=== PATIENT | female | born 1980 | race Caucasian/White ===

== ENCOUNTER 2018-03-11 18:11 | Inpatient (IN) ==
[2018-03-11] MEDS ORDERED: Ondansetron 4 MG/2 ML VIAL IVP ONE (18:36)
[2018-03-11] MEDS ORDERED: *HR* Nalbuphine 10 MG/ML AMPUL IV ONE (18:37)
--- NOTE | 2018-03-11 18:41 | Emergency Department Note ---
Disposition Clinical Impression: Bacteremia, Pyelonephritis Disposition: Admitted As Inpatient Condition: Fair Forms: ED Satisfaction Letter Time of Disposition: 18:43 Recheck wound or abnormal lab - General Chief Complaint: ED Recheck/Abnormal Lab/Rx Stated Complaint: blood infection Time Seen by Provider: 03/11/18 18:26 Source: patient, family Mode of arrival: ambulatory Limitations: no limitations Nursing Notes Reviewed: Yes Vital Signs Reviewed: Yes - History of Present Illness HPI Narrative: Patient states she received a call back after having a positive blood culture. Cultures drawn on when she was evaluated for suspected urinary tract infection. She was prescribed Bactrim and has been trying to take this but has been having nausea and vomiting. She continues to have difficulty urinating with dysuria. She states she has had a fever of 101. Associated chills and malaise. Prior to the Bactrim the patient was taking Macrobid Pt Subjective Complaint: abnormal lab(s) Symptoms Since Prior Visit: worsening pain Associated symptoms: fever, chills, malaise, nausea Treatments prior to arrival: given antibiotics on - Related Data Home Medications Medication Instructions Recorded Confirmed Citalopram Hydrobromide 40 mg PO DAILY 03/11/18 03/11/18 [Citalopram HBr] DiphenhydraMINE [Benadryl] 25 mg PO HS PRN 03/11/18 03/11/18 Metoprolol [Lopressor] 25 mg PO BID 03/11/18 03/11/18 Topiramate [Topiramate] 50 mg PO BID 03/11/18 03/11/18 Allergies Allergy/AdvReac Type Severity Reaction Status Date / Time ceftriaxone [From Rocephin] Allergy Anaphylaxis Verified 03/11/18 18:21 doxycycline Allergy Anaphylaxis Verified 03/11/18 18:21 fentanyl Allergy Hives Verified 03/11/18 18:21 haloperidol [From Haldol] Allergy Anaphylaxis Verified 03/11/18 18:20 ketorolac [From Toradol] Allergy Anaphylaxis Verified 03/11/18 18:20 lisinopril Allergy Anaphylaxis Verified 03/11/18 18:20 metoclopramide [From Reglan] Allergy Anaphylaxis Verified 03/11/18 18:20 morphine Allergy Anaphylaxis Verified 03/11/18 18:20 Oxycodone Allergy Anaphylaxis Verified 03/11/18 18:20 prochlorperazine Allergy Anaphylaxis Verified 03/11/18 18:20 [From Compazine] ciprofloxacin AdvReac Difficulty Verified 03/11/18 18:20 Breathing Iodinated Contrast- Oral and AdvReac Hives Verified 03/11/18 18:20 IV Dye [Iodinated Contrast Media - IV Dye] ketamine AdvReac See Verified 03/11/18 18:20 Comments All systems ED: reviewed and negative except as stated. Constitutional: Reports: fever, chills Eyes: Reports: as per HPI ENT ED: Reports: as per HPI Cardiovascular: Reports: as per HPI Respiratory: Reports: as per HPI Gastrointestinal: Reports: abdominal pain, nausea, vomiting, diarrhea Genitourinary: Reports: dysuria Musculoskeletal: Reports: back pain Integumentary: Reports: as per HPI Neurological: Reports: as per HPI Psychiatric: Reports: as per HPI Endocrine: Reports: as per HPI Hematological/Lymphatic: Reports: as per HPI Allergic/Immunologic: Reports: as per HPI Past Medical History - Past Medical History Source: patient Medical history: Reports: hyperlipidemia, hypertension Surgical history: Reports: other Psychiatric history: Reports: depression - Social History Smoking Status: Never smoker Smokeless Tobacco Status: No Alcohol use: Reports: rarely Drug use: Reports: none Physical Exam tearful - General Limitations: no limitations General appearance: alert - Head Head exam: atraumatic - Eye Eye exam: Present: normal appearance - ENT ENT exam: normal exam - Neck Neck exam: Present: normal inspection, full ROM - Chest Chest inspection: Present: normal inspection, symmetric chest wall rise - Respiratory Respiratory exam: Present: normal lung sounds bilaterally - Cardiovascular Cardiovascular exam: Present: regular rate, normal rhythm, normal heart sounds - Abdominal Exam Abdominal exam: Present: soft, Non-Tender - Rectal Exam Rectal exam: Present: deferred - Extremities Exam Extremities exam: Present: normal inspection - Back Exam Back exam: Present: CVA tenderness (L) - Neurological Exam Neurological exam: Present: alert, oriented X3, CN II-XII intact - Psychiatric Psychiatric exam: Present: anxious - Skin Skin exam: Present: warm, dry, intact Course Course Narrative: The patient presents after having positive blood cultures dated 03/09/18. 1 of 2 blood cultures grew out gram-positive cocci. I did speak with microbiology and the organism has yet to be speciating. No sensitivity available. I will initiate broad-spectrum antibiotics. The finding could be a skin contaminant however the patient was recently treated for a UTI/pyelonephritis and she could be septic. I will request admission pending repeat cultures - Reevaluation(s) Reevaluation #1: The patient had a CT scan of her abdomen and pelvis dated 03/09/18 and repeat imaging is not indicated today Reevaluation #2: Dr. Alexis accepts admission Vital Signs Temperature 99 F 03/11/18 18:21 Pulse Rate 79 03/11/18 18:21 Respiratory Rate 20 03/11/18 18:21 Blood Pressure 184/83 03/11/18 18:21 O2 Sat by Pulse Oximetry 97 03/11/18 18:21 Temperature 99 F 03/11/18 18:21 Pulse Rate 79 03/11/18 18:21 Respiratory Rate 20 03/11/18 18:21 Blood Pressure 184/83 03/11/18 18:21 O2 Sat by Pulse Oximetry 97 03/11/18 18:21 Oxygen Delivery Oxygen Delivery Room Air Recheck wound or abnormal lab - Medical Records Medical records reviewed: Yes I reviewed the patient's medical records. - Lab Data Lab results reviewed: Yes I reviewed the patient's lab results. Result diagrams: 03/11/18 18:52 03/11/18 18:52 Lab Results 03/11/18 03/11/18 03/11/18 Range/Units 18:52 18:52 18:52 WBC 5.6 (4.3-11.1) K/mcL RBC 4.28 (3.82-4.97) M/mcL Hgb 13.8 (11.5-15.4) g/dL Hct 39.5 (35.3-44.9) % MCV 92.3 (83.0-100.0) fL MCH 32.2 (28.0-33.3) pg MCHC 34.9 (31.6-35.5) g/dL RDW 13.2 (11.5-14.5) % Plt Count 229 (140-400) K/mcL MPV 9.7 (9.4-12.4) fL Immature Gran % 0.2 (0-4) % Seg Neutrophils % 52.4 % Lymphocytes % 33.4 % Monocytes % 9.7 % Eosinophils % 3.4 % Basophils % 0.9 % Neutrophils # 2.9 (1.6-8.9) K/mcL Lymphocytes # 1.9 (0.6-4.6) K/mcL Monocytes # 0.5 (0.0-1.3) K/mcL Eosinophils # 0.2 (0.0-0.6) K/mcL Basophils # 0.1 (0.0-0.2) K/mcL Sodium 138 (136-145) mEq/L Potassium 4.0 (3.5-5.1) mEq/L Chloride 108 H (98-107) mEq/L Carbon Dioxide 22 L (23-29) mEq/L BUN 10 (6-20) mg/dL Creatinine 0.87 (0.60-1.20) mg/dL Est GFR ( Amer) > 60 (> 60) Est GFR (Non-Af Amer) > 60 (> 60) BUN/Creatinine Ratio 11 (6-26) Glucose 111 H (70-105) mg/dL Calculated Osmolality 286 (280-300) Lactic Acid 1.1 (0.5-2.2) mmol/L Calcium 9.4 (8.6-10.3) mg/dL Total Bilirubin 0.4 (0.3-1.0) mg/dL AST 15 (13-39) Units/L ALT 15 (7-52) Units/L Alkaline Phosphatase 38 (34-104) Units/L Serum Total Protein 6.8 (6.4-8.9) g/dL Albumin 4.4 (3.5-5.7) g/dL Globulin 2.4 (2.4-3.5) g/dL Albumin/Globulin Ratio 1.8 (1.1-2.2) Urine Color (Yellow) Urine Clarity (Clear) Urine pH (5.0-8.0) pH Units Ur Specific [place] (1.010-1.025) Urine Protein (Neg-Trace) mg/dL Urine Glucose (UA) (Normal) mg/dL Urine Ketones (Negative) mg/dL Urine Blood (Negative) Urine Nitrite (Negative) Urine Bilirubin (Negative) Urine Urobilinogen (Normal) mg/dL Ur Leukocyte Esterase (Negative) Urine Microscopic RBC (0-3) per hpf Urine Microscopic WBC (0-3) per hpf Ur Squamous Epith Cells (None-Few) per lpf Urine Bacteria (None-Few) per hpf Hyaline Casts (None-Few) per lpf 03/11/18 Range/Units 18:58 WBC (4.3-11.1) K/mcL RBC (3.82-4.97) M/mcL Hgb (11.5-15.4) g/dL Hct (35.3-44.9) % MCV (83.0-100.0) fL MCH (28.0-33.3) pg MCHC (31.6-35.5) g/dL RDW (11.5-14.5) % Plt Count (140-400) K/mcL MPV (9.4-12.4) fL Immature Gran % (0-4) % Seg Neutrophils % % Lymphocytes % % Monocytes % % Eosinophils % % Basophils % % Neutrophils # (1.6-8.9) K/mcL Lymphocytes # (0.6-4.6) K/mcL Monocytes # (0.0-1.3) K/mcL Eosinophils # (0.0-0.6) K/mcL Basophils # (0.0-0.2) K/mcL Sodium (136-145) mEq/L Potassium (3.5-5.1) mEq/L Chloride (98-107) mEq/L Carbon Dioxide (23-29) mEq/L BUN (6-20) mg/dL Creatinine (0.60-1.20) mg/dL Est GFR ( Amer) (> 60) Est GFR (Non-Af Amer) (> 60) BUN/Creatinine Ratio (6-26) Glucose (70-105) mg/dL Calculated Osmolality (280-300) Lactic Acid (0.5-2.2) mmol/L Calcium (8.6-10.3) mg/dL Total Bilirubin (0.3-1.0) mg/dL AST (13-39) Units/L ALT (7-52) Units/L Alkaline Phosphatase (34-104) Units/L Serum Total Protein (6.4-8.9) g/dL Albumin (3.5-5.7) g/dL Globulin (2.4-3.5) g/dL Albumin/Globulin Ratio (1.1-2.2) Urine Color Yellow (Yellow) Urine Clarity Clear (Clear) Urine pH 8.5 H (5.0-8.0) pH Units Ur Specific [place] 1.011 (1.010-1.025) Urine Protein Negative (Neg-Trace) mg/dL Urine Glucose (UA) Normal (Normal) mg/dL Urine Ketones Negative (Negative) mg/dL Urine Blood Large H (Negative) Urine Nitrite Negative (Negative) Urine Bilirubin Negative (Negative) Urine Urobilinogen Normal (Normal) mg/dL Ur Leukocyte Esterase Trace H (Negative) Urine Microscopic RBC 30-50 H (0-3) per hpf Urine Microscopic WBC 0-3 (0-3) per hpf Ur Squamous Epith Cells Many H (None-Few) per lpf Urine Bacteria Few (None-Few) per hpf Hyaline Casts None Seen (None-Few) per lpf
[2018-03-11 19:08] LABS: Basophils # 0.1 K/mcL (0.0-0.2); Basophils % 0.9 %; Eosinophils # 0.2 K/mcL (0.0-0.6); Eosinophils % 3.4 %; Hematocrit 39.5 % (35.3-44.9); Hemoglobin 13.8 g/dL (11.5-15.4); Immature Granulocytes % 0.2 % (0-4); Lymphocytes # 1.9 K/mcL (0.6-4.6); Lymphocytes % 33.4 %; Mean Corpuscular HGB Conc 34.9 g/dL (31.6-35.5); Mean Corpuscular Hemoglobin 32.2 pg (28.0-33.3); Mean Corpuscular Volume 92.3 fL (83.0-100.0); Mean Platelet Volume 9.7 fL (9.4-12.4); Monocytes # 0.5 K/mcL (0.0-1.3); Monocytes % 9.7 %; Neutrophils # 2.9 K/mcL (1.6-8.9); Platelet Count 229 K/mcL (140-400); Red Blood Count 4.28 M/mcL (3.82-4.97); Red Cell Distribution Width 13.2 % (11.5-14.5); Segmented Neutrophils % 52.4 %
[2018-03-11 19:11] LABS: Bilirubin,Urine Negative (Negative); Blood,Urine Large (Negative); Clarity,Urine Clear (Clear); Color,Urine Yellow (Yellow); Glucose,Urine (UA) Normal (Normal); Ketones,Urine Negative (Negative); Leukocyte Esterase,Urine Trace (Negative); Nitrite,Urine Negative (Negative); PH,Urine 8.5 pH Units (5.0-8.0); Protein,Urine Negative (Neg-Trace); Specific Gravity,Urine 1.011 (1.010-1.025); Urobilinogen,Urine Normal (Normal)
[2018-03-11 19:15] LABS: Bacteria,Urine Few per hpf (None-Few); Hyaline Casts,Urine None Seen per lpf (None-Few); RBC,Urine 30-50 per hpf (0-3); Squamous Epithelial Cell,Urine Many per lpf (None-Few); WBC,Urine 0-3 per hpf (0-3)
[2018-03-11 19:28] LABS: Alanine Aminotransferase 15 Units/L (7-52); Albumin 4.4 g/dL (3.5-5.7); Albumin/Globulin Ratio 1.8 (1.1-2.2); Alkaline Phosphatase 38 Units/L (34-104); Aspartate Amino Transferase 15 Units/L (13-39); BUN/Creatinine Ratio 11 (6-26); Bilirubin,Total 0.4 mg/dL (0.3-1.0); Blood Urea Nitrogen 10 mg/dL (6-20); Calcium 9.4 mg/dL (8.6-10.3); Carbon Dioxide 22 mEq/L (23-29); Chloride 108 mEq/L (98-107); Globulin 2.4 g/dL (2.4-3.5); Glucose 111 mg/dL (70-105); Osmolality,Calculated 286 (280-300); Sodium 138 mEq/L (136-145); Total Protein 6.8 g/dL (6.4-8.9); eGFR For Non-African Americans > 60 (> 60)
[2018-03-11] MEDS ORDERED: Naloxone 0.4 MG/ML INJ IVP PRN (21:05)
[2018-03-11] MEDS ORDERED: Ibuprofen 800 MG TABLET PO PRN (21:14)
--- NOTE | 2018-03-11 21:20 | Internal Med History&Physical ---
Date of Encounter: 03/11/18 Time of Encounter: 21:18 Internal Medicine - H&P: HPI Chief complaint: called back for abnormal lab Admitted From: Home Plans for Post Hospital Care: Home History of present illness: Ms. Christie is a 37 year old female who reports a past medical history of hypertension, hyperlipidemia, depression and recurrent urinary tract infections who presented to the emergency room 2 days ago with a complaint of dysuria, nausea and vomiting that had not responded to 2 days of nitrofurantoin that was prescribed to her in an urgent care center. She was then prescribed TMP-SMX on March 09 with blood cultures obtained and now she is called back because of the finding of GPC's on one blood culture bottle. She states that she continues to have dysuria associated with chills and malaise. She states that she gets UTIs once every 2 months but has never been studied for this. He reports some vaginal discharge and foul smell. She has not been able to tolerate by mouth adequately and therefore has not taken the oral antibiotic prescribed because of nausea and vomiting. On arrival to the emergency room she received analgesics for pain control and urine studies done were grossly unremarkable and similar to her visit from 3 days ago. Her vitals are remarkable for high blood pressure and no fever however her lab studies did not show leukocytosis with neutrophilia. She received 1 dose of vancomycin and is now admitted for further observation pending culture finalization. On my evaluation she was distraught, in some discomfort stating that she can only tolerate morphine and hydromorphone IV as well as acetaminophen and ibuprofen by mouth however due to nausea and vomiting he is unable to keep down. Past Med Surg Social Fam HX - Past Medical History Medical history: hyperlipidemia, hypertension Psychiatric history: depression - Past Surgical History Surgical History: other Additional surgical history: HEMMORROIDECTOMY - Social History Smoking Status: Never smoker Smokeless Tobacco Status: No Alcohol use: rarely Drug use: none Internal Medicine - H&P: Meds Citalopram Hydrobromide [Citalopram HBr] 40 mg PO DAILY 03/11/18 [History] DiphenhydraMINE [Benadryl] 25 mg PO HS PRN 03/11/18 [History] Metoprolol [Lopressor] 25 mg PO BID 03/11/18 [History] Topiramate [Topiramate] 50 mg PO BID 03/11/18 [History] 3 Allergy/AdvReac Type Severity Reaction Status Date / Time ceftriaxone [From Rocephin] Allergy Anaphylaxis Verified 03/11/18 18:21 doxycycline Allergy Anaphylaxis Verified 03/11/18 18:21 fentanyl Allergy Hives Verified 03/11/18 18:21 haloperidol [From Haldol] Allergy Anaphylaxis Verified 03/11/18 18:20 ketorolac [From Toradol] Allergy Anaphylaxis Verified 03/11/18 18:20 lisinopril Allergy Anaphylaxis Verified 03/11/18 18:20 metoclopramide [From Reglan] Allergy Anaphylaxis Verified 03/11/18 18:20 morphine Allergy Anaphylaxis Verified 03/11/18 18:20 Oxycodone Allergy Anaphylaxis Verified 03/11/18 18:20 prochlorperazine Allergy Anaphylaxis Verified 03/11/18 18:20 [From Compazine] ciprofloxacin AdvReac Difficulty Verified 03/11/18 18:20 Breathing Iodinated Contrast- Oral and AdvReac Hives Verified 03/11/18 18:20 IV Dye [Iodinated Contrast Media - IV Dye] ketamine AdvReac See Verified 03/11/18 18:20 Comments All Systems PM: A 10-system review of systems was performed and is negative for pertinent findings except as documented above in the HPI. - Constitutional Vitals: Temp Pulse Resp BP Pulse Ox 98.1 F 69 15 133/81 93 03/11/18 20:44 03/11/18 20:44 03/11/18 20:44 03/11/18 20:44 03/11/18 20:44 Exam: Vitals: Reviewed. General: Obese white female lying in bed not in acute distress Skin: Warm and supple HEENT: Moist mucous membranes. No conjunctivae pallor. Neck: No lymphadenopathy. No JVD. No carotid bruits. No palpable thyroid. Chest: Normal thoracic expansion. Normal breath sounds. Clear to auscultation. Heart: Normal S1 & S2; rhythmic. No rubs or murmurs. Abdomen: Obese and soft but tender to palpation in the suprapubic region and left flank. Extremities: No clubbing, cyanosis or edema. No calf tenderness. Normal distal pulses. Neurological: Awake, alert and oriented to person, place and time. No focal deficits. Psych: Affect appropriate. Internal Med - H&P Results - Labs CBC & Chem 7: 03/11/18 18:52 03/11/18 18:52 - Assessment and plan (1) Bacteremia Current Visit: Yes Status: Acute Assessment and plan: She was seen to have one blood culture bottle with GPC's identified and PCR serologies thus far negative. She does not have systemic signs of illness no fever or leukocytosis present. It is unclear if this is a true bacteremic state or if this is a blood culture contaminant from procedures in the ER. All the same we will remain prudent and keep her on vancomycin in the interim pending finalization of the cultures. Repeat blood cultures have been drawn and should be followed. (2) Urinary tract infection Current Visit: No Status: Acute Assessment and plan: The patient reports recurrent episodes of urinary tract infection of unclear etiology. CT scan done in the emergency room a few days ago was grossly unremarkable with no signs of obstruction or inflammation of her kidneys. Her urinalysis from her prior visit and today are not suggestive of acute infection with only trace site esterase and negative nitrites and no white blood cells. Will keep her on oral TMP/SMX for now to complete a 3 day course for suspected cystitis as she reportedly did not take it while at home. Qualifiers: Urinary tract infection type: acute cystitis Hematuria presence: with hematuria Qualified Code(s): N30.01 - Acute cystitis with hematuria (3) Depression Current Visit: Yes Status: Chronic Assessment and plan: Will continue antidepressants while hospitalized. Qualifiers: Depression Type: other depression Qualified Code(s): F32.89 - Other specified depressive episodes (4) Hypertension Current Visit: Yes Status: Acute Assessment and plan: Poorly controlled however elevated values today may be due to pain and distress. She is on metoprolol at home which we will continue as we continue to monitor BP values. Qualifiers: Hypertension type: essential hypertension Qualified Code(s): I10 - Essential (primary) hypertension (5) DVT prophylaxis Current Visit: Yes Status: Acute Assessment and plan: SubQ heparin ordered. - Time Spent With Patient Total time spent is greater than 50% in coordination of care (as documented) at patient's floor/unit and/or counseling patient: 25 - 35 minutes
[2018-03-11] MEDS ORDERED: cefTRIAXone 1,000 MG in 0.9 % Sodium Chloride Mini Bag 100 ML IVPB SCH (22:00)
[2018-03-11] MEDS: *HR* HYDROcodone/Acet 10/325 mg TABLET PO PRN (23:24)
[2018-03-11] MEDS: Ringers Solution, Lactated 1,000 ML IVC SCH (23:24)
[2018-03-11] MEDS: *HR* Heparin 5,000 UNIT/ML VIAL SQ SCH (23:25)
[2018-03-12] MEDS ORDERED: *HR* Nalbuphine 10 MG/ML AMPUL IVP ONE
[2018-03-12 01:05] LABS: Basophils % 0.7 %; Eosinophils # 0.1 K/mcL (0.0-0.6); Eosinophils % 2.4 %; Hematocrit 39.5 % (35.3-44.9); Hemoglobin 13.7 g/dL (11.5-15.4); Immature Granulocytes % 0.5 % (0-4); Lymphocytes # 1.9 K/mcL (0.6-4.6); Lymphocytes % 31.7 %; Mean Corpuscular HGB Conc 34.7 g/dL (31.6-35.5); Mean Corpuscular Hemoglobin 32.1 pg (28.0-33.3); Mean Corpuscular Volume 92.5 fL (83.0-100.0); Mean Platelet Volume 10.2 fL (9.4-12.4); Monocytes # 0.5 K/mcL (0.0-1.3); Monocytes % 8.9 %; Neutrophils # 3.3 K/mcL (1.6-8.9); Platelet Count 193 K/mcL (140-400); Red Blood Count 4.27 M/mcL (3.82-4.97); Red Cell Distribution Width 13.2 % (11.5-14.5); Segmented Neutrophils % 55.8 %
[2018-03-12 01:19] LABS: BUN/Creatinine Ratio 10 (6-26); Blood Urea Nitrogen 9 mg/dL (6-20); Carbon Dioxide 21 mEq/L (23-29); Chloride 108 mEq/L (98-107); Glucose 114 mg/dL (70-105); Osmolality,Calculated 282 (280-300); Potassium 4.1 mEq/L (3.5-5.1); Sodium 136 mEq/L (136-145); eGFR For Non-African Americans > 60 (> 60)
[2018-03-12] MEDS: Ondansetron 4 MG/2 ML VIAL IVP PRN ×3 (01:41→18:13)
[2018-03-12] MEDS ORDERED: Ondansetron 4 MG/2 ML VIAL IVP ONE (05:42)
[2018-03-12] MEDS: *HR* Heparin 5,000 UNIT/ML VIAL SQ SCH ×3 (06:31→21:40)
[2018-03-12] MEDS: Ringers Solution, Lactated 1,000 ML IVC SCH (08:32)
[2018-03-12] MEDS ORDERED: Ibuprofen 800 MG TABLET PO PRN (08:50)
[2018-03-12] MEDS ORDERED: Vancomycin 1,750 MG in 0.9 % Sodium Chloride 250 ML IVPB SCH (09:00)
[2018-03-12] MEDS ORDERED: Sulfamethoxazole/Trimeth DS 1 EACH TABLET PO SCH (09:00)
[2018-03-12] MEDS: Topiramate 25 MG TABLET PO SCH ×2 (09:14→21:40)
[2018-03-12] MEDS: Piperacillin/Tazobactam 3.375 GM in 0.9 % Sodium Chloride Mini Bag 100 ML IVPB SCH ×2 (11:18→18:03)
[2018-03-12] MEDS ORDERED: *HR* Nalbuphine 20 MG/ML AMPUL IVP ONE (12:00)
[2018-03-12] MEDS: *HR* HYDROcodone/Acet 10/325 mg TABLET PO PRN ×2 (12:44→18:38)
--- NOTE | 2018-03-12 16:22 | Internal Med Progress Note ---
Hospitalist Progress Note - Encounter Date of Encounter: 03/12/18 Time of Encounter: 16:20 - Exam Vitals: Temp Pulse Resp BP Pulse Ox 98.3 F 74 16 116/69 94 03/12/18 14:31 03/12/18 14:31 03/12/18 14:31 03/12/18 14:31 03/12/18 14:31 - Assessment and Plan (1) Bacteremia Current Visit: Yes Status: Acute Assessment and Plan: was seen in the ED 3 days before admission - bcx obtained at that time are positive for gram +ve cocci (? contaminate) She does not have systemic signs of illness no fever or leukocytosis present. TTE done 03/12/18- LVEF 60-65%. Mild left ventricular diastolic dysfunction. Normal right ventricular structure and function. Mild mitral regurgitation. Mild tricuspid regurgitation. No pulmonary hypertension. No evidence for endocarditis on this study. on vancomycin IV Bcx resent will follow (2) Urinary tract infection Current Visit: No Status: Acute Assessment and Plan: allergic to multiple Abx was unable to tolerate bactrim started on Zosyn with out any adverse reactions will follow cx (3) Hypertension Current Visit: Yes Status: Acute Assessment and Plan: controlled with home medications (4) Depression Current Visit: Yes Status: Chronic Assessment and Plan: will continue home medications (5) DVT prophylaxis Current Visit: Yes Status: Acute Assessment and Plan: heparin Sc DVT Prophylaxis: as above - Time Spent with Patient Total time spent is greater than 50% in coordination of care (as documented) at patient's floor/unit and/or counseling patient: Plan of Care Discussed with: patient Internal Medicine: Result - Labs CBC & Chem 7: 03/12/18 00:33 03/12/18 00:33 Labs: Short CBC 03/12/18 Range/Units 00:33 WBC 5.9 (4.3-11.1) K/mcL Hgb 13.7 (11.5-15.4) g/dL Hct 39.5 (35.3-44.9) % Plt Count 193 (140-400) K/mcL Neutrophils # 3.3 (1.6-8.9) K/mcL BMP 03/12/18 00:33 Sodium 136 Potassium 4.1 Chloride 108 H Carbon Dioxide 21 L BUN 9 Creatinine 0.86 Glucose 114 H Calcium 9.0 - Impressions Impressions Echocardiogram 03/12/18 07:28 Impressions: LVEF 60-65%. Mild left ventricular diastolic dysfunction. Normal right ventricular structure and function. Mild mitral regurgitation. Mild tricuspid regurgitation. No pulmonary hypertension. No evidence for endocarditis on this study. Left Ventricular Wall Motion: Rest Echo Findings All wall segments showed normal motion. Findings: Study Quality * Technically adequate exam. ECG Findings * Normal sinus rhythm. Left Ventricle * LVEF 60-65%. * Normal LV chamber size, wall thickness and function. * Mild left ventricular diastolic dysfunction. Right Ventricle * Normal right ventricular structure and function. Left Atrium * Normal left atrial size. Right Atrium * Normal right atrial size. Mitral Valve * Normal mitral valve structure. * No mitral stenosis. * Mild mitral regurgitation. Aortic Valve * Aortic valve not well visualized. * No aortic stenosis. * No aortic regurgitation. Tricuspid Valve * Normal tricuspid valve structure. * Mild tricuspid regurgitation. * Estimated RA pressure is 3 mmHg. * Estimated RVSP is 24 mmHg. * No pulmonary hypertension. Pulmonic Valve * Pulmonic valve is not well visualized. * No pulmonic stenosis. * No pulmonic regurgitation. Pulmonary Artery * Pulmonary artery not well visualized. Aorta * Normally sized aortic root. Pericardium * There is no pericardial effusion present. Interatrial Septum * No evidence of PFO by color Doppler. IVC * Normal IVC dimensions and inspiratory collapse. Consult Discharge Plan - Plan Referrals: Jamey Vela DO [Primary Care Provider] - (2) Urinary tract infection Qualifiers: Urinary tract infection type: acute cystitis Hematuria presence: with hematuria Qualified Code(s): N30.01 - Acute cystitis with hematuria (3) Hypertension Qualifiers: Hypertension type: essential hypertension Qualified Code(s): I10 - Essential (primary) hypertension (4) Depression Qualifiers: Depression Type: other depression Qualified Code(s): F32.89 - Other specified depressive episodes
[2018-03-12] MEDS: *HR* Promethazine 25 MG/ML VIAL IVP PRN (23:32)
[2018-03-13] MEDS: *HR* HYDROcodone/Acet 10/325 mg TABLET PO PRN ×4 (01:09→23:33)
[2018-03-13] MEDS: Ringers Solution, Lactated 1,000 ML IVC SCH (03:00)
[2018-03-13] MEDS: Piperacillin/Tazobactam 3.375 GM in 0.9 % Sodium Chloride Mini Bag 100 ML IVPB SCH ×3 (03:19→17:06)
[2018-03-13] MEDS: *HR* Promethazine 25 MG/ML VIAL IVP PRN ×3 (05:46→21:39)
[2018-03-13] MEDS: *HR* Heparin 5,000 UNIT/ML VIAL SQ SCH ×3 (05:49→21:38)
[2018-03-13 07:06] LABS: Basophils % 1.2 %; Eosinophils # 0.2 K/mcL (0.0-0.6); Eosinophils % 5.5 %; Hemoglobin 13.3 g/dL (11.5-15.4); Immature Granulocytes % 0.3 % (0-4); Lymphocytes # 1.5 K/mcL (0.6-4.6); Lymphocytes % 44.4 %; Mean Corpuscular HGB Conc 34.1 g/dL (31.6-35.5); Mean Corpuscular Hemoglobin 32.4 pg (28.0-33.3); Mean Corpuscular Volume 94.9 fL (83.0-100.0); Mean Platelet Volume 9.6 fL (9.4-12.4); Monocytes # 0.3 K/mcL (0.0-1.3); Monocytes % 9.5 %; Neutrophils # 1.4 K/mcL (1.6-8.9); Platelet Count 179 K/mcL (140-400); Red Blood Count 4.11 M/mcL (3.82-4.97); Red Cell Distribution Width 13.2 % (11.5-14.5); Segmented Neutrophils % 39.1 %
[2018-03-13 07:23] LABS: BUN/Creatinine Ratio 12 (6-26); Blood Urea Nitrogen 12 mg/dL (6-20); Calcium 8.4 mg/dL (8.6-10.3); Carbon Dioxide 23 mEq/L (23-29); Chloride 110 mEq/L (98-107); Glucose 120 mg/dL (70-105); Osmolality,Calculated 289 (280-300); Potassium 3.8 mEq/L (3.5-5.1); Sodium 139 mEq/L (136-145); eGFR For Non-African Americans > 60 (> 60)
[2018-03-13] MEDS: Topiramate 25 MG TABLET PO SCH ×2 (07:44→21:41)
[2018-03-13] MEDS ORDERED: Aminoglycoside Consult 1 EACH MC ONE (13:29)
--- NOTE | 2018-03-13 14:26 | Internal Med Progress Note ---
Hospitalist Progress Note - Encounter Date of Encounter: 03/13/18 Time of Encounter: 10:00 - Subjective Interval History: she is feeling much better than yesterday. is tolerating Abx denies back pain, her suprapubic pain has nearly resolved. is tolerating PO diet denies fever, chills, chest pain, SOB, palpitations. - Exam Vitals: Temp Pulse Resp BP Pulse Ox 98.2 F 57 15 106/58 93 03/13/18 10:27 03/13/18 10:03/13/18 10:03/13/18 10:03/13/18 10:27 Exam: General: Patient is alert, oriented, no acute distress, Head: atraumatic, normocephalic, Eye: normal appearance, PERRL, no scleral icterus, no conjunctival injection ENT: mucous membranes moist, normal external ear exam Neck: normal inspection, trachea midline, full ROM, no carotid bruits Chest: normal inspection, symmetric chest rise Respiratory: Good respiratory effort. Bilateral breath sounds are clear without wheezing, crackles, or rhonchi. Cardiovascular: Regular rate and rhythm. s1 and s2 No clicks, rubs, gallops, or murmors. Abdomen: Bowel sounds present normoactive x-4 quadrants. Abdomen is soft, nondistended. no Epigastric tenderness. No guarding or rebound. No organomegaly noted, obese, no CVA tenderness musculoskeletal: Spontaneously moving all extremities. no edema, no calf tenderness Skin: warm, dry, intact. no janeway lesions or splinter hemorrhages Neuro: Alert and oriented x4. Sensation light touch intact. Cranial nerves 2- 12 is intact. Not aphasic, Psych: Patient's affect is normal - Assessment and Plan (1) Bacteremia Current Visit: Yes Status: Acute Assessment and Plan: was seen in the ED 3 days before admission - bcx obtained at that time are positive for gram +ve cocci (? contaminate) PCR of those cultures are negative 2x more bcx sent and are in process as of 03/12 She does not have systemic signs of illness no fever or leukocytosis present. TTE done 03/12/18- LVEF 60-65%. Mild left ventricular diastolic dysfunction. Normal right ventricular structure and function. Mild mitral regurgitation. Mild tricuspid regurgitation. No pulmonary hypertension. No evidence for endocarditis on this study. on vancomycin IV - discontinued on 03/13/18 after my discussion with ID attending as PCR is negative will watch patient for SIRS will follow new cx (2) Urinary tract infection Current Visit: No Status: Acute Assessment and Plan: allergic to multiple Abx was unable to tolerate bactrim started on Zosyn with out any adverse reactions ucx is negative as she is still symptomatic will continue with zosyn for one more day ( allergic to multiple abx from different classes) (3) Hypertension Current Visit: Yes Status: Acute Assessment and Plan: controlled with home medications (4) Depression Current Visit: Yes Status: Chronic Assessment and Plan: will continue home medications (5) DVT prophylaxis Current Visit: Yes Status: Acute Assessment and Plan: heparin Sc (6) Morbidly obese Current Visit: Yes Status: Acute Assessment and Plan: nutrition consult DVT Prophylaxis: as per above - Time Spent with Patient Total time spent is greater than 50% in coordination of care (as documented) at patient's floor/unit and/or counseling patient: Plan of Care Discussed with: patient Internal Medicine: Result - Labs CBC & Chem 7: 03/13/18 06:46 03/13/18 06:46 Labs: Short CBC 03/13/18 Range/Units 06:46 WBC 3.5 L (4.3-11.1) K/mcL Hgb 13.3 (11.5-15.4) g/dL Hct 39.0 (35.3-44.9) % Plt Count 179 (140-400) K/mcL Neutrophils # 1.4 L (1.6-8.9) K/mcL BMP 03/13/18 06:46 Sodium 139 Potassium 3.8 Chloride 110 H Carbon Dioxide 23 BUN 12 Creatinine 1.01 Glucose 120 H Calcium 8.4 L - Impressions Impressions Echocardiogram 03/12/18 07:28 Impressions: LVEF 60-65%. Mild left ventricular diastolic dysfunction. Normal right ventricular structure and function. Mild mitral regurgitation. Mild tricuspid regurgitation. No pulmonary hypertension. No evidence for endocarditis on this study. Left Ventricular Wall Motion: Rest Echo Findings All wall segments showed normal motion. Findings: Study Quality * Technically adequate exam. ECG Findings * Normal sinus rhythm. Left Ventricle * LVEF 60-65%. * Normal LV chamber size, wall thickness and function. * Mild left ventricular diastolic dysfunction. Right Ventricle * Normal right ventricular structure and function. Left Atrium * Normal left atrial size. Right Atrium * Normal right atrial size. Mitral Valve * Normal mitral valve structure. * No mitral stenosis. * Mild mitral regurgitation. Aortic Valve * Aortic valve not well visualized. * No aortic stenosis. * No aortic regurgitation. Tricuspid Valve * Normal tricuspid valve structure. * Mild tricuspid regurgitation. * Estimated RA pressure is 3 mmHg. * Estimated RVSP is 24 mmHg. * No pulmonary hypertension. Pulmonic Valve * Pulmonic valve is not well visualized. * No pulmonic stenosis. * No pulmonic regurgitation. Pulmonary Artery * Pulmonary artery not well visualized. Aorta * Normally sized aortic root. Pericardium * There is no pericardial effusion present. Interatrial Septum * No evidence of PFO by color Doppler. IVC * Normal IVC dimensions and inspiratory collapse. Consult Discharge Plan - Plan Referrals: Jamey Vela DO [Primary Care Provider] - (2) Urinary tract infection Qualifiers: Urinary tract infection type: acute cystitis Hematuria presence: with hematuria Qualified Code(s): N30.01 - Acute cystitis with hematuria (3) Hypertension Qualifiers: Hypertension type: essential hypertension Qualified Code(s): I10 - Essential (primary) hypertension (4) Depression Qualifiers: Depression Type: other depression Qualified Code(s): F32.89 - Other specified depressive episodes
[2018-03-14] MEDS: Piperacillin/Tazobactam 3.375 GM in 0.9 % Sodium Chloride Mini Bag 100 ML IVPB SCH ×3 (02:38→17:17)
[2018-03-14] MEDS: Ondansetron 4 MG/2 ML VIAL IVP PRN (02:45)
[2018-03-14] MEDS: *HR* Promethazine 25 MG/ML VIAL IVP PRN ×4 (04:09→22:48)
[2018-03-14 05:25] LABS: Basophils % 0.7 %; Eosinophils # 0.2 K/mcL (0.0-0.6); Eosinophils % 5.8 %; Hematocrit 38.4 % (35.3-44.9); Lymphocytes # 1.6 K/mcL (0.6-4.6); Lymphocytes % 38.8 %; Mean Corpuscular HGB Conc 33.9 g/dL (31.6-35.5); Mean Corpuscular Hemoglobin 31.9 pg (28.0-33.3); Mean Corpuscular Volume 94.3 fL (83.0-100.0); Mean Platelet Volume 9.8 fL (9.4-12.4); Monocytes # 0.4 K/mcL (0.0-1.3); Neutrophils # 1.9 K/mcL (1.6-8.9); Platelet Count 189 K/mcL (140-400); Red Blood Count 4.07 M/mcL (3.82-4.97); Red Cell Distribution Width 13.1 % (11.5-14.5); Segmented Neutrophils % 45.7 %
[2018-03-14 05:42] LABS: BUN/Creatinine Ratio 16 (6-26); Blood Urea Nitrogen 15 mg/dL (6-20); Calcium 8.5 mg/dL (8.6-10.3); Carbon Dioxide 24 mEq/L (23-29); Chloride 108 mEq/L (98-107); Glucose 121 mg/dL (70-105); Osmolality,Calculated 288 (280-300); Potassium 3.8 mEq/L (3.5-5.1); Sodium 138 mEq/L (136-145); eGFR For Non-African Americans > 60 (> 60)
[2018-03-14] MEDS: *HR* Heparin 5,000 UNIT/ML VIAL SQ SCH ×3 (06:34→22:06)
[2018-03-14] MEDS: Topiramate 25 MG TABLET PO SCH ×2 (07:34→22:05)
[2018-03-14] MEDS: *HR* HYDROcodone/Acet 10/325 mg TABLET PO PRN ×2 (07:35→22:06)
--- NOTE | 2018-03-14 11:14 | Internal Med Progress Note ---
Hospitalist Progress Note - Encounter Date of Encounter: 03/14/18 Time of Encounter: 07:45 - Subjective Interval History: she is feeling much better than yesterday. is tolerating Abx denies back pain, her suprapubic pain has nearly resolved. is tolerating PO diet denies fever, chills, chest pain, SOB, palpitations. - Exam Vitals: Temp Pulse Resp BP Pulse Ox 98.1 F 67 15 117/76 94 03/14/18 10:19 03/14/18 10:19 03/14/18 10:19 03/14/18 10:19 03/14/18 10:19 Exam: General: Patient is alert, oriented, no acute distress, Head: atraumatic, normocephalic, Eye: normal appearance, PERRL, no scleral icterus, no conjunctival injection ENT: mucous membranes moist, normal external ear exam Neck: normal inspection, trachea midline, full ROM, no carotid bruits Chest: normal inspection, symmetric chest rise Respiratory: Good respiratory effort. Bilateral breath sounds are clear without wheezing, crackles, or rhonchi. Cardiovascular: Regular rate and rhythm. s1 and s2 No clicks, rubs, gallops, or murmors. Abdomen: Bowel sounds present normoactive x-4 quadrants. Abdomen is soft, nondistended. no Epigastric tenderness. No guarding or rebound. No organomegaly noted, obese, no CVA tenderness musculoskeletal: Spontaneously moving all extremities. no edema, no calf tenderness Skin: warm, dry, intact. no janeway lesions or splinter hemorrhages Neuro: Alert and oriented x4. Sensation light touch intact. Cranial nerves 2- 12 is intact. Not aphasic, Psych: Patient's affect is normal - Assessment and Plan (1) Bacteremia Current Visit: Yes Status: Acute Assessment and Plan: was seen in the ED 3 days before admission - bcx obtained at that time are positive for gram +ve cocci (? contaminate) PCR of those cultures are negative 2x more bcx sent and are in process as of 03/12 She does not have systemic signs of illness no fever or leukocytosis present. TTE done 03/12/18- LVEF 60-65%. Mild left ventricular diastolic dysfunction. Normal right ventricular structure and function. Mild mitral regurgitation. Mild tricuspid regurgitation. No pulmonary hypertension. No evidence for endocarditis on this study. on vancomycin IV - discontinued on 03/13/18 after my discussion with ID attending as PCR is negative will watch patient for SIRS will follow new cx ID on board (2) Urinary tract infection Current Visit: No Status: Acute Assessment and Plan: allergic to multiple Abx was unable to tolerate bactrim started on Zosyn with out any adverse reactions - will discontinue on 03/16/18 ucx is negative as she is still symptomatic will continue with zosyn for one more day ( allergic to multiple abx from different classes) (3) Hypertension Current Visit: Yes Status: Acute Assessment and Plan: controlled with home medications (4) Depression Current Visit: Yes Status: Chronic Assessment and Plan: will continue home medications (5) DVT prophylaxis Current Visit: Yes Status: Acute Assessment and Plan: heparin Sc (6) Morbidly obese Current Visit: Yes Status: Acute Assessment and Plan: nutrition consulted DVT Prophylaxis: as per above - Time Spent with Patient Total time spent is greater than 50% in coordination of care (as documented) at patient's floor/unit and/or counseling patient: Internal Medicine: Result - Labs CBC & Chem 7: 03/14/18 04:32 03/14/18 04:32 Labs: Short CBC 03/14/18 Range/Units 04:32 WBC 4.1 L (4.3-11.1) K/mcL Hgb 13.0 (11.5-15.4) g/dL Hct 38.4 (35.3-44.9) % Plt Count 189 (140-400) K/mcL Neutrophils # 1.9 (1.6-8.9) K/mcL BMP 03/14/18 04:32 Sodium 138 Potassium 3.8 Chloride 108 H Carbon Dioxide 24 BUN 15 Creatinine 0.94 Glucose 121 H Calcium 8.5 L Consult Discharge Plan - Plan Referrals: Jamey Vela, [Primary Care Provider] - (2) Urinary tract infection Qualifiers: Urinary tract infection type: acute cystitis Hematuria presence: with hematuria Qualified Code(s): N30.01 - Acute cystitis with hematuria (3) Hypertension Qualifiers: Hypertension type: essential hypertension Qualified Code(s): I10 - Essential (primary) hypertension (4) Depression Qualifiers: Depression Type: other depression Qualified Code(s): F32.89 - Other specified depressive episodes
--- NOTE | 2018-03-14 16:39 | Discharge Summary ---
- NOTES TO OUTPATIENT PROVIDER Notes to Outpatient Provider: monitor glucose and BP. follow up with final blood cx prelim negative x 4 days Orders not resulted at time of discharge: Pending orders 03/14/18 11:11 UA w. reflex microscopic [Urinalysis reflex Microscopic] [URIN] Stat 03/15/18 04:00 BMP [Basic Metabolic Panel] AM 0400 Complete Blood Count [HEME] AM 0400 Date of Encounter: 03/15/18 Time of Encounter: 08:54 - Discharge Diagnosis (1) Bacteremia Priority: Primary Status: Acute (2) Urinary tract infection Priority: Secondary Status: Acute Qualifiers: Urinary tract infection type: acute cystitis Hematuria presence: with hematuria Qualified Code(s): N30.01 - Acute cystitis with hematuria (3) Hypertension Priority: Secondary Status: Acute Qualifiers: Hypertension type: essential hypertension Qualified Code(s): I10 - Essential (primary) hypertension (4) Depression Priority: Secondary Status: Chronic Qualifiers: Depression Type: other depression Qualified Code(s): F32.89 - Other specified depressive episodes (5) DVT prophylaxis Priority: Secondary Status: Acute (6) Morbidly obese Priority: Secondary Status: Acute Hospital course: Ms. Christie is a 37 year old female who reports a past medical history of hypertension, hyperlipidemia, depression and recurrent urinary tract infections who presented to the emergency room 2 days ago with a complaint of dysuria, nausea and vomiting that had not responded to 2 days of nitrofurantoin that was prescribed to her in an urgent care center. She was then prescribed TMP-SMX on March 09 with blood cultures obtained and now she is called back because of the finding of GPC's on one blood culture bottle. CT scan was done in the february admission (results below ) on admission she complained of fever and chills. She states that she gets UTIs once every 2 months but has never been studied for this. she was started on IV Abx for UTI . she was also started on IV vancomycin for bacteremia. TTE was done ( results below) PCR of the cultures growing GPCs were negative. 2 mores sets of Bcx were sent and prelim after 4 days are negative ( as per microbiology ) repeated ucx was negative. ID was consulted and recommendation followed. she remained Afebrile without leukocytosis. was treated for yeast infection. TTE 03/12/18 LVEF 60-65%. Mild left ventricular diastolic dysfunction. Normal right ventricular structure and function. Mild mitral regurgitation. Mild tricuspid regurgitation. No pulmonary hypertension. No evidence for endocarditis on this study. Ct A/P 03/09/18 IMPRESSION: 1. No evidence obstructive uropathy or other acute process. 2. Status post cholecystectomy, appendectomy and hysterectomy. Discharge discussed with: patient - Time Spent with Patient Total time spent providing and/or coordinating discharge services: Less than 30 minutes - Discharge Medications Home Medications: Citalopram Hydrobromide [Citalopram HBr] 40 mg PO DAILY 03/11/18 [History] DiphenhydraMINE [Benadryl] 25 mg PO HS PRN 03/11/18 [History] Metoprolol [Lopressor] 25 mg PO BID 03/11/18 [History] Topiramate 50 mg PO BID 03/11/18 [History] Allergies/Adverse Reactions: 3 Allergy/AdvReac Type Severity Reaction Status Date / Time ceftriaxone [From Rocephin] Allergy Anaphylaxis Verified 03/11/18 18:21 doxycycline Allergy Anaphylaxis Verified 03/11/18 18:21 fentanyl Allergy Hives Verified 03/11/18 18:21 haloperidol [From Haldol] Allergy Anaphylaxis Verified 03/11/18 18:20 ketorolac [From Toradol] Allergy Anaphylaxis Verified 03/11/18 18:20 lisinopril Allergy Anaphylaxis Verified 03/11/18 18:20 metoclopramide [From Reglan] Allergy Anaphylaxis Verified 03/11/18 18:20 morphine Allergy Anaphylaxis Verified 03/11/18 18:20 Oxycodone Allergy Anaphylaxis Verified 03/11/18 18:20 prochlorperazine Allergy Anaphylaxis Verified 03/11/18 18:20 [From Compazine] ciprofloxacin AdvReac Difficulty Verified 03/11/18 18:20 Breathing Iodinated Contrast- Oral and AdvReac Hives Verified 03/11/18 18:20 IV Dye [Iodinated Contrast Media - IV Dye] ketamine AdvReac See Verified 03/11/18 18:20 Comments Date of admission: 03/11/18 21:05 Primary care physician: Jamey Vela Consults: 03/13/18 11:26 Consult to Infectious Diseases [CONS] Stat Consulting Provider: Infectious Disease [place] Reason for Consult: BACTEREMIA - SPOKE TO dR. HAYDAR Call Completed: Yes 03/14/18 11:14 Consult to Nutrition [CONS] Routine Comment: Consulting Provider: NUTRITION Reason for Dietary Consult: PO Supplementation - Constitutional Vitals: Temp Pulse Resp BP Pulse Ox 98.8 F 90 15 119/70 91 03/14/18 14:18 03/14/18 14:18 03/14/18 14:18 03/14/18 14:18 03/14/18 14:18 Exam: General: Patient is alert, oriented, no acute distress, Head: atraumatic, normocephalic, Eye: normal appearance, PERRL, no scleral icterus, no conjunctival injection ENT: mucous membranes moist, normal external ear exam Neck: normal inspection, trachea midline, full ROM, no carotid bruits Chest: normal inspection, symmetric chest rise Respiratory: Good respiratory effort. Bilateral breath sounds are clear without wheezing, crackles, or rhonchi. Cardiovascular: Regular rate and rhythm. s1 and s2 No clicks, rubs, gallops, or murmors. Abdomen: Bowel sounds present normoactive x-4 quadrants. Abdomen is soft, nondistended. no Epigastric tenderness. No guarding or rebound. No organomegaly noted, obese, no CVA tenderness musculoskeletal: Spontaneously moving all extremities. no edema, no calf tenderness Skin: warm, dry, intact. no janeway lesions or splinter hemorrhages Neuro: Alert and oriented x4. Sensation light touch intact. Cranial nerves 2- 12 is intact. Not aphasic, Psych: Patient's affect is normal - Patient Status Disposition: Home, Self-Care Condition: Fair Overall status at discharge: patient is progressing back to baseline - Discharge Instructions Follow Up With: Jamey Vela DO [Primary Care Provider] - Ewa Dave MD [Partnered Physician] - - Diet and Activity Activity: increase activity as tolerated Diet: advance to your usual diet, low fat, low cholesterol
[2018-03-14 20:42] LABS: Bilirubin,Urine Negative (Negative); Blood,Urine Negative (Negative); Clarity,Urine Clear (Clear); Color,Urine Yellow (Yellow); Glucose,Urine (UA) Normal (Normal); Ketones,Urine Negative (Negative); Leukocyte Esterase,Urine Small (Negative); Nitrite,Urine Negative (Negative); PH,Urine 7.5 pH Units (5.0-8.0); Protein,Urine Negative (Neg-Trace); Urobilinogen,Urine Normal (Normal)
[2018-03-14 20:44] LABS: Bacteria,Urine None Seen per hpf (None-Few); Hyaline Casts,Urine None Seen per lpf (None-Few); Squamous Epithelial Cell,Urine Many per lpf (None-Few)
[2018-03-14 20:53] LABS: Yeast,Urine Few per hpf (None Seen)
[2018-03-15] MEDS: Piperacillin/Tazobactam 3.375 GM in 0.9 % Sodium Chloride Mini Bag 100 ML IVPB SCH (02:16)
[2018-03-15] MEDS ORDERED: Fluconazole 100 MG TABLET PO ONE (06:00)
[2018-03-15] MEDS: *HR* Heparin 5,000 UNIT/ML VIAL SQ SCH (06:31)
[2018-03-15] MEDS: *HR* Promethazine 25 MG/ML VIAL IVP PRN (06:32)
[2018-03-15 06:35] LABS: Basophils # 0.1 K/mcL (0.0-0.2); Eosinophils # 0.2 K/mcL (0.0-0.6); Eosinophils % 3.8 %; Hematocrit 40.1 % (35.3-44.9); Hemoglobin 14.1 g/dL (11.5-15.4); Immature Granulocytes % 1.4 % (0-4); Lymphocytes # 1.7 K/mcL (0.6-4.6); Lymphocytes % 34.1 %; Mean Corpuscular HGB Conc 35.2 g/dL (31.6-35.5); Mean Corpuscular Hemoglobin 32.7 pg (28.0-33.3); Mean Platelet Volume 9.8 fL (9.4-12.4); Monocytes # 0.5 K/mcL (0.0-1.3); Monocytes % 10.4 %; Neutrophils # 2.5 K/mcL (1.6-8.9); Platelet Count 191 K/mcL (140-400); Red Blood Count 4.31 M/mcL (3.82-4.97); Segmented Neutrophils % 49.3 %
[2018-03-15 07:06] LABS: BUN/Creatinine Ratio 21 (6-26); Blood Urea Nitrogen 19 mg/dL (6-20); Calcium 8.5 mg/dL (8.6-10.3); Carbon Dioxide 21 mEq/L (23-29); Chloride 108 mEq/L (98-107); Glucose 101 mg/dL (70-105); Osmolality,Calculated 282 (280-300); Potassium 4.2 mEq/L (3.5-5.1); Sodium 135 mEq/L (136-145); eGFR For Non-African Americans > 60 (> 60)
[2018-03-15 07:34] VITALS: BP 116/75
[2018-03-15] MEDS: Topiramate 25 MG TABLET PO SCH (07:51)
--- NOTE | 2018-03-15 12:12 | Infectious Disease Consult ---
Date of Encounter: 03/15/18 Time of Encounter: 12:12 Assessment and Plan (1) Urinary tract infection Status: Acute Assessment and plan: Diagnosed on 03/09/2018. Causative organism not clear. Clinically improved with Bactrim. Patient is on day 7 of Bactrim. Recommend the seeing Bactrim and observing. Qualifiers: Urinary tract infection type: acute cystitis Hematuria presence: with hematuria Qualified Code(s): N30.01 - Acute cystitis with hematuria (2) Bacteremia Status: Acute Assessment and plan: 1 out of 2 sets on 03/09 positive for micrococcus. Patient has no high risk behavior, no IV drug use, and physical exam with no endocarditis stigmata or heart murmur. Likely contaminant no further recommendations this time. (3) Depression Status: Chronic Qualifiers: Depression Type: other depression Qualified Code(s): F32.89 - Other specified depressive episodes (4) Morbidly obese Status: Acute Infectious Disease HPI - Data of Consult Patient: new to practice Consult date: 03/15/18 Requesting Physician: Brenna Bill MD Primary Care Provider: Jamey Vela - Consult Narrative Reason for consult: bacteremia History of present illness: Ms. Christie is a 37 year old female Patient is a 37-year-old woman whose medical history is mentioned below presented to [facility] on March 11 for bacteremia, we were consulted on March 15 for antibiotics recommendations. Patient is a 37-year-old woman with past medical history mentioned below apparently presented to the emergency department on March 09 with fevers chills aches and was diagnosed with a UTI. Patient was discharged on Bactrim. Patient is known to be allergic to ceftriaxone on doxycycline. Patient's urine culture was grossly contaminated, and the blood cultures 1 out of 2 sets grew micrococcus. Initially it was said 1 out of 2 sets showing gram-positive cocci. Patient was called and ask him to the emergency department for evaluation. Since admission patient has been afebrile and clinically doing okay. Patient has no urinary symptoms. Repeat cultures were obtained. Review of system and physical exam is unremarkable on the patient. CC: Brenna Bill MD Past Med Surg Social Fam HX - Past Medical History Medical history: hyperlipidemia, hypertension Additional medical history: Depression, TIA Psychiatric history: depression - Past Surgical History Surgical History: hysterectomy, other Additional surgical history: HEMMORROIDECTOMY, fissurectomy, appendectomy, tonsilectomy - Social History Smoking Status: Never smoker Smokeless Tobacco Status: No Alcohol use: rarely Drug use: none Infectious Disease-CN:Meds Citalopram Hydrobromide [Citalopram HBr] 40 mg PO DAILY 03/11/18 [History] DiphenhydraMINE [Benadryl] 25 mg PO HS PRN 03/11/18 [History] Metoprolol [Lopressor] 25 mg PO BID 03/11/18 [History] Topiramate 50 mg PO BID 03/11/18 [History] 3 Allergy/AdvReac Type Severity Reaction Status Date / Time ceftriaxone [From Rocephin] Allergy Anaphylaxis Verified 03/11/18 18:21 doxycycline Allergy Anaphylaxis Verified 03/11/18 18:21 fentanyl Allergy Hives Verified 03/11/18 18:21 haloperidol [From Haldol] Allergy Anaphylaxis Verified 03/11/18 18:20 ketorolac [From Toradol] Allergy Anaphylaxis Verified 03/11/18 18:20 lisinopril Allergy Anaphylaxis Verified 03/11/18 18:20 metoclopramide [From Reglan] Allergy Anaphylaxis Verified 03/11/18 18:20 morphine Allergy Anaphylaxis Verified 03/11/18 18:20 Oxycodone Allergy Anaphylaxis Verified 03/11/18 18:20 prochlorperazine Allergy Anaphylaxis Verified 03/11/18 18:20 [From Compazine] ciprofloxacin AdvReac Difficulty Verified 03/11/18 18:20 Breathing Iodinated Contrast- Oral and AdvReac Hives Verified 03/11/18 18:20 IV Dye [Iodinated Contrast Media - IV Dye] ketamine AdvReac See Verified 03/11/18 18:20 Comments Review of systems: No chest pain, no shortness of breath, no URI symptoms, no runny nose or sore throat, no nausea or vomiting, no urinary symptoms Exam - Constitutional Vitals: Temp Pulse Resp BP Pulse Ox 97.7 F 61 14 116/75 94 03/15/18 07:33 03/15/18 07:33 03/15/18 07:33 03/15/18 07:33 03/15/18 07:33 General appearance: cooperative, no acute distress, no febrile - Respiratory Respiratory exam: Present: CTAB. Absent: wheezes - Cardiovascular Cardiovascular exam: Present: RRR, +S1, +S2 - GI/Abdominal GI/Abdominal exam: Present: normal bowel sounds, soft. Absent: tenderness - Extremities Exam Extremities exam: Present: normal inspection - Neurological Exam Neurological exam: Present: alert, oriented X3 - Skin Skin exam: Present: normal color. Absent: rash Infectious Disease CN: Results - Labs CBC & Chem 7: 03/15/18 06:23 03/15/18 06:23 Cultures: Cultures 03/12/18 13:30 Urine Culture - Final Urine,Clean Catch No growth. Serology: Serology 03/14/18 Range/Units 20:30 Urine Color Yellow (Yellow) Urine Clarity Clear (Clear) Urine pH 7.5 (5.0-8.0) pH Units Ur Specific [place] 1.020 (1.010-1.025) Urine Protein Negative (Neg-Trace) mg/dL Urine Glucose (UA) Normal (Normal) mg/dL Urine Ketones Negative (Negative) mg/dL Urine Blood Negative (Negative) Urine Nitrite Negative (Negative) Urine Bilirubin Negative (Negative) Urine Urobilinogen Normal (Normal) mg/dL Ur Leukocyte Esterase Small H (Negative) Urine Microscopic RBC 3-5 H (0-3) per hpf Urine Microscopic WBC 3-5 H (0-3) per hpf Ur Squamous Epith Cells Many H (None-Few) per lpf Urine Bacteria None Seen (None-Few) per hpf Hyaline Casts None Seen (None-Few) per lpf Urine Yeast Few H (None Seen) per hpf Consult Discharge Plan - Plan Referrals: Jamey Vela DO [Primary Care Provider] - 03/22/18 9:00 am Ewa Dave MD [Partnered Physician] - (Web request sent on 03/15.)
== END 2018-03-15 13:30 | disposition home or self-care (01) | DRG 463 ==
LOC: EMEROO 18:11 → 3ANU 18:11 → SUATTDRO 21:05
PROVIDERS: ADMIT Internal Medicine; ATTEND Internal Medicine

== ENCOUNTER 2019-10-17 00:07 | Observation (INO) ==
[2019-10-17 00:38] LABS: Hematocrit 43.3 % (35.3-44.9); Hemoglobin 14.5 g/dL (11.5-15.4); Mean Corpuscular HGB Conc 33.5 g/dL (31.6-35.5); Mean Corpuscular Hemoglobin 31.8 pg (28.0-33.3); Mean Platelet Volume 9.4 fL (9.4-12.4); Platelet Count 217 K/mcL (140-400); Red Blood Count 4.56 M/mcL (3.82-4.97); White Blood Count 6.5 K/mcL (4.3-11.1)
[2019-10-17] MEDS ORDERED: *HR* HYDROmorphone (PF) 1 MG/ML SYRINGE IVP ONE (00:43)
[2019-10-17] MEDS ORDERED: *HR* LORazepam 2 MG/ML VIAL IVP ONE (00:43)
[2019-10-17 00:56] LABS: BUN/Creatinine Ratio 17 (6-26); Blood Urea Nitrogen 17 mg/dL (6-20); Calcium 9.5 mg/dL (8.6-10.3); Carbon Dioxide 20 mEq/L (23-29); Chloride 109 mEq/L (98-107); Glucose 114 mg/dL (70-105); Osmolality,Calculated 286 (280-300); Potassium 3.8 mEq/L (3.5-5.1); Sodium 137 mEq/L (136-145); Troponin I < 0.03 ng/mL (< 0.04); eGFR For African Americans > 60 (> 60); eGFR For Non-African Americans > 60 (> 60)
[2019-10-17] MEDS ORDERED: Naloxone 0.4 MG/ML INJ IVP PRN (02:41)
[2019-10-17 03:53] LABS: Estimated Average Glucose 103 mg/dl
[2019-10-17] MEDS ORDERED: Acetaminophen 325 MG TABLET PO PRN (04:48)
[2019-10-17] MEDS ORDERED: Acetaminophen IV 500 MG/50 ML INFUS..BTL IVPB ONE (05:37)
[2019-10-17 07:41] LABS: Chol/HDL Ratio 5.4 (0-4.9); Cholesterol 231 mg/dL (< 200); HDL Cholesterol 43 mg/dL (40-59); LDL Cholesterol,Calculated 120 mg/dL (0-99); Triglycerides 341 mg/dL (< 150)
[2019-10-17] MEDS ORDERED: Ondansetron 4 MG/2 ML VIAL IVP ONE ×2 (08:12→11:45)
[2019-10-17] MEDS ORDERED: Acetaminophen/Butalbital/CaffeineTABLET PO ONE (12:24)
[2019-10-17] MEDS ORDERED: Isovue-370 500 ML BOTTLE IVP ONE (13:18)
[2019-10-17] MEDS: Aspirin Enteric Coated 81 MG Tablet PO SCH (16:50)
[2019-10-17] MEDS: Topiramate 25 MG TABLET PO SCH ×2 (16:50→20:47)
[2019-10-17] MEDS: Valproic Acid INJ 500 MG in 0.9 % Sodium Chloride 100 ML IVPB SCH (16:57)
[2019-10-17] MEDS: 0.9 % Sodium Chloride 1,000 ML IVC SCH (16:58)
[2019-10-17] MEDS: *HR* Heparin 5,000 UNIT/ML VIAL SQ SCH (17:01)
[2019-10-17] MEDS: methylPREDNISolone 125 MG/2 ML VIAL IVP SCH (18:04)
[2019-10-18] MEDS: methylPREDNISolone 125 MG/2 ML VIAL IVP SCH ×2 (00:06→08:28)
[2019-10-18] MEDS: Valproic Acid INJ 500 MG in 0.9 % Sodium Chloride 100 ML IVPB SCH ×2 (00:06→08:29)
[2019-10-18] MEDS: *HR* Heparin 5,000 UNIT/ML VIAL SQ SCH (05:26)
[2019-10-18] MEDS: Topiramate 25 MG TABLET PO SCH (08:28)
[2019-10-18] MEDS: Aspirin Enteric Coated 81 MG Tablet PO SCH (08:28)
[2019-10-18] MEDS: 0.9 % Sodium Chloride 1,000 ML IVC SCH (08:29)
[2019-10-18 10:47] VITALS: BP 111/70
== END 2019-10-18 11:58 | disposition home or self-care (01) ==
LOC: 3BNU 00:07 → EMEROOARM 00:07 → SUATTDRO 02:09 → 3BNU 02:30
PROVIDERS: ADMIT Internal Medicine; ATTEND Internal Medicine